=== PATIENT | female | born 1935 | race Caucasian/White ===

== ENCOUNTER 2019-02-08 09:31 | Inpatient (IN) | payer MEDICARE ==
[~2019-02-08] VITALS: Ht 162.6 cm; Wt 57.6 kg
--- NOTE | 2019-02-08 09:44 | NUR ---
soy. report received from [facility]. pt walked to bt at home and started cpx3 in this morning. denies any other sx. 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 hx of mi/stent/stroke/chf. pt's aox4. resps even and unlabored. 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 all monitors in place. call light within reach. pt's daughter at bedside.
[2019-02-08] MEDS ORDERED: CHOL500045 PO (09:47)
[2019-02-08] MEDS ORDERED: ASCO500T8 PO (09:47)
[2019-02-08] MEDS ORDERED: LISI-170 PO (09:47)
[2019-02-08] MEDS ORDERED: INSU100I13 SC ×2 (09:49→09:52)
[2019-02-08] MEDS ORDERED: FURO20TA3 PO (09:50)
[2019-02-08] MEDS ORDERED: AMLO-150 PO (09:50)
[2019-02-08] MEDS ORDERED: WARF3TAB52 PO (09:50)
[2019-02-08] MEDS ORDERED: ASPI-496 PO (09:51)
[2019-02-08] MEDS ORDERED: LORA-445 PO (09:51)
[2019-02-08 10:11] LABS: BASOPHILS # (AUTO) 0.08 x10^3/uL (0-0.1); BASOPHILS % (AUTO) 1 % (0-1); EOSINOPHILS # (AUTO) 0.06 x10^3/uL (0-0.4); EOSINOPHILS % (AUTO) 1 % (1-7); LYMPHOCYTES # (AUTO) 0.75 x10^3/uL (1-3.4); LYMPHOCYTES % (AUTO) 11 % (22-44); MD NO; MEAN CORPUSCULAR HEMOGLOBIN 30.4 pg (27.0-34.8); MEAN CORPUSCULAR HGB CONC 32.7 g/dL (32.4-35.8); MEAN CORPUSCULAR VOLUME 92.8 fL (80-100); MEAN PLATELET VOLUME 12.1 fL (7.4-10.4); MONOCYTES # (AUTO) 0.54 x10^3/uL (0.2-0.8); MONOCYTES % (AUTO) 8 % (2-9); NEUTROPHILS % (AUTO) 80 % (42-75); PLATELET COUNT 180 x10^3/uL (130-400); RED BLOOD COUNT 4.64 x10^6/uL (3.82-5.3); RED CELL DISTRIBUTION WIDTH 14.8 % (9.6-15.2)
[2019-02-08 10:22] LABS: ANION GAP 7 mmol/L (5-15); CALCIUM 9.3 mg/dL (8.5-10.1); CHLORIDE 109 mmol/L (98-107)
[2019-02-08 10:27] LABS: CREATININE 1.53 mg/dL (0.55-1.02); TROPONIN I < 0.015 ng/mL (0.000-0.045)
--- NOTE | 2019-02-08 10:29 | NUR ---
PT RESTING IN [facility]. PT'S AOX4. RESPS EVEN AND UNLABORED. ALL MONITORS IN PLACE. CALL LIGHT WITHIN REACH.
--- NOTE | 2019-02-08 10:48 | NUR ---
PT AMB TO BR AND BACK TO ROOM WITH STEADY GAIT.
--- NOTE | 2019-02-08 11:22 | NUR ---
REPORT GIVEN TO YA LAGUNAS. ALL QUESTIONS ANSWERED.
[2019-02-08] MEDS ORDERED: ACETAMINOPHEN 325 MG TABLET PO PRN (11:30)
[2019-02-08] MEDS ORDERED: hydrALAzine 20 MG/ML, 1ML IVPush PRN (11:30)
[2019-02-08] MEDS ORDERED: ENOXAPARIN 40 MG/0.4 ML SQ SCH (11:30)
[2019-02-08] MEDS ORDERED: ONDANSETRON 2MG/ML, 2ML IVPush PRN (11:30)
[2019-02-08] MEDS ORDERED: LABETALOL 5MG/ML, 20ML IVPush PRN (11:30)
[2019-02-08] MEDS ORDERED: NITROGLYCERIN 0.4 MG BOTTLE (25 TABS) SL PRN (11:30)
[2019-02-08] MEDS ORDERED: ASPIRIN 81 MG TABLET CHEW PO ONE (11:30)
[2019-02-08] MEDS ORDERED: PROMETHAZINE 25 MG/ML, 1ML IM PRN (11:30)
[2019-02-08 11:39] VITALS: BP 155/75
[2019-02-08] MEDS ORDERED: HEPARIN 5,000 UNITS/ML, 1ML SQ SCH (12:00)
[2019-02-08] MEDS: INSULIN LISPRO 100 UNITS/ML, PEN SQ-INSULIN SCH ×3 (13:07→21:09)
[2019-02-08 13:29] LABS: INTERNATIONAL NORMALIZED RATIO 1.92 (0.93-1.1); PROTHROMBIN TIME 19.7 Seconds (9.6-11.5)
[2019-02-08 13:31] LABS: CHOLESTEROL, TOTAL 208 mg/dL (140-239); TRIGLYCERIDES 113 mg/dL (50-200); VLDL CHOLESTEROL 23 mg/dL (0-25)
[2019-02-08 13:33] LABS: CHOL/HDL RATIO 4.2; HDL CHOL % 24 % (28-40); HDL CHOLESTEROL (DIRECT) 49 mg/dL (40-60); LDL CHOLESTEROL,CALCULATED 136 mg/dL (54-169); LDL/HDL RATIO 2.8 (0.5-3.0); TROPONIN I < 0.015 ng/mL (0.000-0.045)
[2019-02-08 13:35] VITALS: BP 155/75
[2019-02-08 13:47] LABS: HEMOGLOBIN A1C 10.3 % (4.2-6.3)
[2019-02-08] MEDS: FUROSEMIDE 20 MG/2 ML IV SCH (16:36)
[2019-02-08 18:05] LABS: TROPONIN I 0.032 ng/mL (0.000-0.045)
[2019-02-08 19:55] VITALS: BP 144/62
[2019-02-08] MEDS ORDERED: ATORVASTATIN 40 MG TABLET PO SCH (21:00)
[2019-02-08] MEDS ORDERED: INSULIN GLARGINE 100 UNITS/ML, PEN SQ-INSULIN SCH (21:00)
[2019-02-08 23:51] LABS: TROPONIN I 0.037 ng/mL (0.000-0.045)
[2019-02-09 00:09] VITALS: BP 133/75
[2019-02-09 05:17] LABS: BASOPHILS # (AUTO) 0.04 x10^3/uL (0-0.1); BASOPHILS % (AUTO) 1 % (0-1); EOSINOPHILS # (AUTO) 0.14 x10^3/uL (0-0.4); EOSINOPHILS % (AUTO) 2 % (1-7); LYMPHOCYTES # (AUTO) 0.91 x10^3/uL (1-3.4); LYMPHOCYTES % (AUTO) 13 % (22-44); MD NO; MEAN CORPUSCULAR HGB CONC 32.6 g/dL (32.4-35.8); MEAN CORPUSCULAR VOLUME 95.1 fL (80-100); MEAN PLATELET VOLUME 12.6 fL (7.4-10.4); MONOCYTES % (AUTO) 10 % (2-9); NEUTROPHILS # (AUTO) 5.45 x10^3/uL (1.8-6.8); NEUTROPHILS % (AUTO) 75 % (42-75); PLATELET COUNT 170 x10^3/uL (130-400); RED BLOOD COUNT 4.66 x10^6/uL (3.82-5.3); RED CELL DISTRIBUTION WIDTH 14.8 % (9.6-15.2)
[2019-02-09 05:28] LABS: ALBUMIN 3.2 g/dL (3.4-5.0); ANION GAP 6 mmol/L (5-15); CALCIUM 9.3 mg/dL (8.5-10.1); CHLORIDE 111 mmol/L (98-107)
[2019-02-09 05:40] LABS: ALANINE AMINOTRANSFERASE 33 U/L (12-78); ALKALINE PHOSPHATASE 96 U/L (45-117); BILIRUBIN,TOTAL 1.1 mg/dL (0.2-1.0); CREATININE 1.43 mg/dL (0.55-1.02); TOTAL PROTEIN 5.8 g/dL (6.4-8.2)
[2019-02-09] MEDS: INSULIN LISPRO 100 UNITS/ML, PEN SQ-INSULIN SCH ×2 (07:00→11:00)
[2019-02-09 07:31] VITALS: BP 153/83
[2019-02-09] MEDS ORDERED: POTASSIUM CHLORIDE 20 MEQ TAB.ER.PRT PO SCH (08:00)
[2019-02-09] MEDS: FUROSEMIDE 20 MG/2 ML IV SCH (08:09)
[2019-02-09] MEDS ORDERED: ASPIRIN 81 MG TABLET EC PO SCH (09:00)
[2019-02-09] MEDS ORDERED: ASCORBIC ACID 500 MG TABLET PO SCH (09:00)
[2019-02-09] MEDS ORDERED: REGADENOSON 0.4 MG/5 ML SYRINGE ONE (11:01)
[2019-02-09 13:26] VITALS: BP 113/65
[2019-02-09] MEDS ORDERED: AMLO-150 PO (16:13)
[2019-02-09] MEDS ORDERED: METO-93 PO (16:19)
[2019-02-09] MEDS ORDERED: NITR0.4T41 SL (16:19)
[2019-02-09] MEDS ORDERED: POTA10TA5 PO (16:24)
== END 2019-02-09 17:20 | disposition home or self-care (01) | DRG 291 ==
LOC: ED 10:17 → EDIP 10:21 → 5SO 11:27 → DCLOUNGE 02-09 17:10
PROVIDERS: ADMIT Internal Medicine; ATTEND Family Medicine
DX: I13.0 Hypertensive heart and chronic kidney disease with heart failure and stage 1 through stage 4 chronic kidney disease, or unspecified chronic kidney disease (principal); I50.23 Acute on chronic systolic (congestive) heart failure; N17.9 Acute kidney failure, unspecified; R07.89 Other chest pain; I25.10 Atherosclerotic heart disease of native coronary artery without angina pectoris; E11.22 Type 2 diabetes mellitus with diabetic chronic kidney disease; E11.65 Type 2 diabetes mellitus with hyperglycemia; I35.0 Nonrheumatic aortic (valve) stenosis; N18.3 Chronic kidney disease, stage 3 (moderate); Z79.4 Long term (current) use of insulin; Z86.73 Personal history of transient ischemic attack (TIA), and cerebral infarction without residual deficits; Z87.891 Personal history of nicotine dependence; Z95.1 Presence of aortocoronary bypass graft; Z95.2 Presence of prosthetic heart valve
CPT/HCPCS: 0399T; 36415; 70450; 71045; 78452; 80048; 80053; 80061; 82962; 83036; 83880; 84443; 84484; 85025; 85610; 85730; 93005; 93017; 93306; G0378; J1644; J2785; A9502; C9898; J1815; J1940